=== PATIENT | male | born 1965 | race Caucasian/White ===

== ENCOUNTER 2018-03-16 16:10 | Emergency (ER) | payer BC, MEDICARE ==
[~2018-03-16] VITALS: Ht 195.6 cm; Wt 113.4 kg
[~2018-03-16 16:10] MED LIST: ALBU90OI61 INH; AMOX500 PO; ANTIDEPRESSANT; ASPI81CH PO; ATOR20; ATORVASTATIN CA10 MG PO; AZIT250 PO; Amlodipine Besyl5 MG PO; BP MED; CEPH500 PO; DILT120 PO; ERYT.5TO OS; FLUSAL2505 INH; GUAI600T33 PO; HYDACE10B PO; HYDACE5; HYDACE5 PO; KETO10 PO; LISI20 PO; LOSA50 PO; NAPR500 PO; Norco 5-325 Ta1 EACH PO; OMEP20ER PO; OXYACE5T PO; PRED10 PO; RXHYDACE PO; TRAM50 PO; VENL75 PO; VENL75ER; VENL75ER PO; XARELTO20 MG PO
[2018-03-16 16:50] LABS: BASOPHILS ABSOLUTE AUTO 0.18 K/mm3 (0.00-0.23); BASOPHILS PERCENT AUTO 2 % (0-2); EOSINOPHILS ABSOLUTE AUTO 0.53 K/mm3 (0.00-0.68); EOSINOPHILS PERCENT AUTO 7 % (0-6); Hematocrit 48.8 % (37.0-53.0); Hemoglobin 16.7 g/dL (13.5-17.5); IMMATURE GRAN ABSOLUTE AUTO 0.02 K/mm3 (0.00-0.10); IMMATURE GRAN PERCENT AUTO 0 % (0-1); LYMPHOCYTES ABSOLUTE AUTO 2.16 K/mm3 (0.84-5.20); LYMPHOCYTES PERCENT AUTO 28 % (21-46); MONOCYTES ABSOLUTE AUTO 0.94 K/mm3 (0.16-1.47); MONOCYTES PERCENT AUTO 12 % (4-13); Mean Corpuscular HGB 32.6 pg (26.0-34.0); Mean Corpuscular HGB Conc 34.2 g/dL (31.5-36.5); Mean Corpuscular Volume 95 fL (80-100); Mean Platelet Volume 9.3 fL (9.1-12.4); NEUTROPHILS ABSOLUTE AUTO 3.97 K/mm3 (1.96-9.15); NEUTROPHILS PERCENT AUTO 51 % (41-73); Platelet Count 371 K/mm3 (150-400); RDW Coefficient Variation 12.2 % (11.7-14.2); RDW Standard Deviation 42.5 fL (35.1-46.3); Red Blood Cell Count 5.13 M/mm3 (4.30-5.90)
[2018-03-16 18:14] LABS: Alanine Aminotransfer (ALT/SGP 58 U/L (12-78); Albumin, Blood 4.1 g/dL (3.4-5.0); Albumin/Globulin Ratio 0.9 (0.8-1.8); Alk Phos 108 U/L (50-136); Anion Gap 10 mmol/L (6-16); Aspartate Aminotrans (AST/SGOT 35 U/L (12-37); Bilirubin, Total 0.5 mg/dL (0.1-1.0); Blood Urea Nitrogen 24 mg/dL (8-24); Bun/Creatinine Ratio 26.2 (12.0-20.0); CO2, Blood 21 mmol/L (21-32); Calcium, Blood 9.2 mg/dL (8.5-10.1); Chloride, Blood 106 mmol/L (98-108); Creatinine, Blood 0.92 mg/dL (0.60-1.20); Globulin, Blood 4.5 g/dL (2.2-4.0); Glomerular Filtration Rate >60 (60-); Glucose, Blood 102 mg/dL (70-99); Potassium, Blood 4.1 mmol/L (3.5-5.5); Sodium, Blood 137 mmol/L (136-145); Total Protein, Blood 8.6 g/dL (6.4-8.2); Troponin I <0.015 ng/mL (0.000-0.040)
== END 2018-03-16 20:27 | disposition home or self-care (01) ==
LOC: ER 16:10
PROVIDERS: Emergency Medicine
DX: R07.89 Other chest pain (principal); R00.2 Palpitations; Z88.5 Allergy status to narcotic agent; Z79.899 Other long term (current) drug therapy; Z79.82 Long term (current) use of aspirin; F32.9 Major depressive disorder, single episode, unspecified
CPT/HCPCS: 36415; 71046; 80053; 84484; 85025; 93005; 93010; 99285-25

== ENCOUNTER 2019-03-29 07:34 | Inpatient (IN) | payer BC, MEDICARE ==
[~2019-03-29] VITALS: Ht 193 cm; Wt 114.2 kg
[~2019-03-29 07:34] MED LIST changes: +CHLO25B PO; +Cardizem LA360 MG PO; -DILT120 PO; -FLUSAL2505 INH; +FLUT1DIS5 INH; -LISI20 PO; +OMEPRAZOLE MAGN20 MG PO; +Prinivil10 MG PO
[2019-03-29 08:06] LABS: BASOPHILS ABSOLUTE AUTO 0.08 K/mm3 (0.00-0.23); BASOPHILS PERCENT AUTO 0 % (0-2); EOSINOPHILS ABSOLUTE AUTO 0.17 K/mm3 (0.00-0.68); EOSINOPHILS PERCENT AUTO 1 % (0-6); Hematocrit 41.9 % (37.0-53.0); Hemoglobin 14.9 g/dL (13.5-17.5); IMMATURE GRAN ABSOLUTE AUTO 0.15 K/mm3 (0.00-0.10); IMMATURE GRAN PERCENT AUTO 1 % (0-1); LYMPHOCYTES ABSOLUTE AUTO 1.02 K/mm3 (0.84-5.20); LYMPHOCYTES PERCENT AUTO 5 % (21-46); MONOCYTES ABSOLUTE AUTO 1.19 K/mm3 (0.16-1.47); MONOCYTES PERCENT AUTO 6 % (4-13); Mean Corpuscular HGB 31.6 pg (26.0-34.0); Mean Corpuscular HGB Conc 35.6 g/dL (31.5-36.5); Mean Corpuscular Volume 89 fL (80-100); Mean Platelet Volume 9.1 fL (9.1-12.4); NEUTROPHILS PERCENT AUTO 87 % (41-73); Platelet Count 529 K/mm3 (150-400); RDW Coefficient Variation 11.8 % (11.7-14.2); RDW Standard Deviation 37.9 fL (35.1-46.3); Red Blood Cell Count 4.71 M/mm3 (4.30-5.90); White Blood Cell Count 19.71 K/mm3 (4.00-11.30)
[2019-03-29] MEDS ORDERED: ELIQUIS5 M3 PO (08:22)
[2019-03-29] MEDS ORDERED: METO25 PO (08:24)
[2019-03-29 08:26] LABS: Alanine Aminotransfer (ALT/SGP 30 U/L (12-78); Albumin, Blood 3.5 g/dL (3.4-5.0); Albumin/Globulin Ratio 0.9 (0.8-1.8); Alk Phos 103 U/L (50-136); Anion Gap 10 mmol/L (6-16); Aspartate Aminotrans (AST/SGOT 19 U/L (12-37); Bilirubin, Total 0.6 mg/dL (0.1-1.0); Blood Urea Nitrogen 21 mg/dL (8-24); Bun/Creatinine Ratio 22.6 (12.0-20.0); CO2, Blood 24 mmol/L (21-32); Chloride, Blood 99 mmol/L (98-108); Creatinine, Blood 0.93 mg/dL (0.60-1.20); Globulin, Blood 4.1 g/dL (2.2-4.0); Glomerular Filtration Rate >60 (60-); Glucose, Blood 119 mg/dL (70-99); Potassium, Blood 4.3 mmol/L (3.5-5.5); Sodium, Blood 133 mmol/L (136-145); Total Protein, Blood 7.6 g/dL (6.4-8.2); Troponin I <0.015 ng/mL (0.000-0.040)
--- NOTE | 2019-03-29 15:25 | NUR ---
PT. REFUSES CPAP AT THIS TIME. REFUSAL FORM SIGNED.
[2019-03-29 16:42] LABS: Adenovirus Not Detected (NOT DETECT); Bordetella pertussis Not Detected (NOT DETECT); Chlamydophila pneumoniae Not Detected (NOT DETECT); Coronavirus 229E Not Detected (NOT DETECT); Coronavirus HKU1 Not Detected (NOT DETECT); Coronavirus NL63 Not Detected (NOT DETECT); Coronavirus OC43 Not Detected (NOT DETECT); Human Metapneumovirus Not Detected (NOT DETECT); Human Rhinovirus/Enterovirus Not Detected (NOT DETECT); Influenza A Not Detected (NOT DETECT); Influenza A/2009-H1 Not Detected (NOT DETECT); Influenza A/H1 Not Detected (NOT DETECT); Influenza A/H3 Not Detected (NOT DETECT); Influenza B Not Detected (NOT DETECT); Mycoplasma pneumoniae Not Detected (NOT DETECT); Parainfluenza Virus 1 Not Detected (NOT DETECT); Parainfluenza Virus 2 Not Detected (NOT DETECT); Parainfluenza Virus 3 Not Detected (NOT DETECT); Parainfluenza Virus 4 Not Detected (NOT DETECT); Respiratory Syncytial Virus Not Detected (NOT DETECT)
--- NOTE | 2019-03-29 20:38 | NUR ---
SHIFT SUMMARY PT IS A&O X4, VSS, ON 2 L O2 VIA NC, LR INFUSING @ 125 ML/HR PER EMAR. PT DENIES CP SINCE BEING ADMITTED TO THE ROOM, NAUSEA MEDICATED X1, TYLENOL GIVEN TO COVER TEMP OF 100.0 F, DYSPNEA ON EXERTION. NSR PER [employer]. PT IS INDEPENDENT IN THE ROOM, CALLS PRN FOR HELP, CALL LIGHT IN REACH, REPORT GIVEN TO МАРИЯ DIA.
[2019-03-30 04:08] LABS: BASOPHILS ABSOLUTE AUTO 0.11 K/mm3 (0.00-0.23); BASOPHILS PERCENT AUTO 1 % (0-2); EOSINOPHILS ABSOLUTE AUTO 0.21 K/mm3 (0.00-0.68); EOSINOPHILS PERCENT AUTO 1 % (0-6); Hematocrit 37.1 % (37.0-53.0); Hemoglobin 12.7 g/dL (13.5-17.5); IMMATURE GRAN ABSOLUTE AUTO 0.12 K/mm3 (0.00-0.10); IMMATURE GRAN PERCENT AUTO 1 % (0-1); LYMPHOCYTES ABSOLUTE AUTO 1.75 K/mm3 (0.84-5.20); LYMPHOCYTES PERCENT AUTO 9 % (21-46); MONOCYTES ABSOLUTE AUTO 1.48 K/mm3 (0.16-1.47); MONOCYTES PERCENT AUTO 8 % (4-13); Mean Corpuscular HGB 32.1 pg (26.0-34.0); Mean Corpuscular HGB Conc 34.2 g/dL (31.5-36.5); Mean Platelet Volume 9.3 fL (9.1-12.4); NEUTROPHILS ABSOLUTE AUTO 15.96 K/mm3 (1.96-9.15); NEUTROPHILS PERCENT AUTO 81 % (41-73); Platelet Count 343 K/mm3 (150-400); RDW Coefficient Variation 12.3 % (11.7-14.2); RDW Standard Deviation 42.7 fL (35.1-46.3); Red Blood Cell Count 3.96 M/mm3 (4.30-5.90); White Blood Cell Count 19.63 K/mm3 (4.00-11.30)
[2019-03-30 04:09] LABS: Mean Corpuscular Volume 94 fL (80-100)
[2019-03-30 04:27] LABS: Alanine Aminotransfer (ALT/SGP 20 U/L (12-78); Albumin, Blood 2.9 g/dL (3.4-5.0); Albumin/Globulin Ratio 0.8 (0.8-1.8); Alk Phos 81 U/L (50-136); Anion Gap 7 mmol/L (6-16); Aspartate Aminotrans (AST/SGOT 7 U/L (12-37); Blood Urea Nitrogen 13 mg/dL (8-24); Bun/Creatinine Ratio 17.4 (12.0-20.0); CO2, Blood 26 mmol/L (21-32); Calcium, Blood 8.6 mg/dL (8.5-10.1); Chloride, Blood 105 mmol/L (98-108); Creatinine, Blood 0.75 mg/dL (0.60-1.20); Globulin, Blood 3.7 g/dL (2.2-4.0); Glomerular Filtration Rate >60 (60-); Glucose, Blood 102 mg/dL (70-99); Magnesium, Blood 1.7 mg/dL (1.6-2.4); Potassium, Blood 3.9 mmol/L (3.5-5.5); Sodium, Blood 138 mmol/L (136-145); Total Protein, Blood 6.6 g/dL (6.4-8.2)
--- NOTE | 2019-03-30 06:00 | NUR ---
ASSUMED CARE AT 1900. AALOWED TO SLEEP AND THEN AROUSED . REPORTS COMPLETE EXHAUSTION AND ACHES. TYLENOL GIVEN AND AFEBRILE PRIOR. NOT DIAPHORETIC. ST INITIALLY THEN SR MOST OF THE SHIFT. TYLENOL GIVEN TWICE FOR SOME SLIGHT RELIEF FROM SO MUCH ACHINESS. REPORTS MUCH IMPROVEMENT FROM CP ON INSPIRATION THAN WHEN FIRST ADMITTED. . DENIES DIZZINESS WHEN OOB TO BR. ENC MUCH FLUIDS. AND NO GI UPSET
--- NOTE | 2019-03-30 17:21 | NUR ---
SHIFT SUMMARY PT A&Ox4. CALM AND COOPERATIVE WITH CARE. PT RESTING IN BED DURING SHIFT, IND IN ROOM; ENCOURAGED PT TO SIT IN CHAIR AND WALK. PT REPORTS RIB/COUGHING PAIN, 4-5/10 WITH INSPIRATION AND COUHG, MEDICATED WITH TYLENOL. PT SOB WITH EXERTION, TITRATED PT TO 1L O2 VIA NC; ATTEMPTED TO TITRATED PT TO RA, SPO2 86-88 WITH AMBULATION ON RA; SPO2 >94% ON 1L O2 VIA NC. PT DENIES NAUSEA; GOOD APPETITE; ADVANCED TO REGULAR DIET THIS AFTERNOON. CLARIFIED NOTE/ORDERS FOR TAMIFLU WITH DR OH; NEW ORDERS TO DISCONTINUE. VSS. NO OTHER ACUTE CHANGES NOTED DURING SHIFT. WILL CONTINUE TO MONITOR UNITL REPORT GIVEN TO ONCOMING RN.
--- NOTE | 2019-03-30 19:29 | NUR ---
PT TRANSFERING TO ROOM 335, TELEPHONE REPORT GIVEN TO [facility]. PT TRANSFERING SHORTLY.
--- NOTE | 2019-03-30 19:51 | NUR ---
HANDOFF/TRANSFER NOTE HANDOFF REPORT RECEIVED FROM PCU NURSE SOFIA. PT TRANSFERED TO FLOOR VIA WHEELCHAIR. IV FLUIDS INFUSING. O2 ADMINISTERED ORDERED. PT ORIENTED TO UNIT. CALL BUTTON WITHIN REACH
--- NOTE | 2019-03-31 05:08 | NUR ---
SHIFT SUMMARY TRANSFER FROM PCU LAST NIGHT. FULL CODE ADMIT FOR SEPSIS/PNEUMONIA. 1 LPM O2, IV FLUIDS INFUSING ORDERED. A&O X4, INDEPENDENT IN ROOM, REGULAR DIET. LIVES W/ AT HOME. DESATURATES O2 SAT WHEN AMBULATING. HX: AFIB, DEPRESSION, APNEA, COPD, HTN
[2019-03-31 05:51] LABS: BASOPHILS PERCENT AUTO 1 % (0-2); EOSINOPHILS ABSOLUTE AUTO 0.31 K/mm3 (0.00-0.68); EOSINOPHILS PERCENT AUTO 3 % (0-6); Hematocrit 38.7 % (37.0-53.0); Hemoglobin 12.9 g/dL (13.5-17.5); IMMATURE GRAN ABSOLUTE AUTO 0.07 K/mm3 (0.00-0.10); IMMATURE GRAN PERCENT AUTO 1 % (0-1); LYMPHOCYTES ABSOLUTE AUTO 1.92 K/mm3 (0.84-5.20); LYMPHOCYTES PERCENT AUTO 15 % (21-46); MONOCYTES ABSOLUTE AUTO 0.94 K/mm3 (0.16-1.47); MONOCYTES PERCENT AUTO 8 % (4-13); Mean Corpuscular HGB 31.4 pg (26.0-34.0); Mean Corpuscular HGB Conc 33.3 g/dL (31.5-36.5); Mean Corpuscular Volume 94 fL (80-100); Mean Platelet Volume 9.6 fL (9.1-12.4); NEUTROPHILS ABSOLUTE AUTO 9.26 K/mm3 (1.96-9.15); NEUTROPHILS PERCENT AUTO 73 % (41-73); Platelet Count 384 K/mm3 (150-400); RDW Coefficient Variation 12.2 % (11.7-14.2); RDW Standard Deviation 42.5 fL (35.1-46.3); Red Blood Cell Count 4.11 M/mm3 (4.30-5.90)
--- NOTE | 2019-03-31 11:24 | NUR ---
PT TITRATED TO RA AND MAINTAINING SPO2>94%, RESPS E/U. PT AMBULATED IN ROOM AND HAS SAT AT EOB EATING W/O ANY DESATS.
--- NOTE | 2019-03-31 12:42 | NUR ---
PT SHOWERED AND IVF ARE NOW RESTARTED. SPO2 WAS 93% ON RA FOLLOWING SHOWER AND AMBULATION IN HALLWAY.
--- NOTE | 2019-03-31 16:21 | NUR ---
PT REPORTS A FLAIR UP OF HIS GOUT IN HIS LEFT FOOT. PT REPORTS HE HAS HAD IT BEFORE AND IT FEELS JUST LIKE IT HAS BEFORE. NOTED TO HAVE SOME REDNESS IN THE INNER PORTION OF LEFT FOOT. PRN TYLENOL GIVEN AND DR OH NOTIFIED, REPORTS SHE WILL ORDER COLCHICINE.
--- NOTE | 2019-03-31 18:20 | NUR ---
SHIFT SUMMARY- PT A/OX4, INDEP UP IN ROOM AND HALLS. PT MEDICATED X1 WITH TYLENOL FOR GOUT TO LEFT FOOT, PT STARTED ON COLCHICINE. LS DIMINISHED, PT HAS BEEN DOING WELL ON RA. PT ABLE TO SHOWER AND AMBULATE IN HALLS WITH MINIMAL SOB. PT POSSIBLE DISCHARGE HOME TOMORROW.
[2019-04-01 05:21] LABS: BASOPHILS ABSOLUTE AUTO 0.09 K/mm3 (0.00-0.23); BASOPHILS PERCENT AUTO 1 % (0-2); EOSINOPHILS ABSOLUTE AUTO 0.34 K/mm3 (0.00-0.68); EOSINOPHILS PERCENT AUTO 3 % (0-6); Hemoglobin 12.8 g/dL (13.5-17.5); IMMATURE GRAN ABSOLUTE AUTO 0.03 K/mm3 (0.00-0.10); IMMATURE GRAN PERCENT AUTO 0 % (0-1); LYMPHOCYTES ABSOLUTE AUTO 1.73 K/mm3 (0.84-5.20); LYMPHOCYTES PERCENT AUTO 17 % (21-46); MONOCYTES ABSOLUTE AUTO 0.87 K/mm3 (0.16-1.47); MONOCYTES PERCENT AUTO 9 % (4-13); Mean Corpuscular HGB 31.6 pg (26.0-34.0); Mean Corpuscular HGB Conc 33.7 g/dL (31.5-36.5); Mean Corpuscular Volume 94 fL (80-100); Mean Platelet Volume 9.3 fL (9.1-12.4); NEUTROPHILS PERCENT AUTO 70 % (41-73); Platelet Count 401 K/mm3 (150-400); RDW Standard Deviation 42.2 fL (35.1-46.3); Red Blood Cell Count 4.05 M/mm3 (4.30-5.90); White Blood Cell Count 10.26 K/mm3 (4.00-11.30)
--- NOTE | 2019-04-01 05:34 | NUR ---
SHIFT SUMMARY PT REPORTS "FEELING MUCH BETTER" THIS EVENING. REMAINED ON RA THROUGHOUT THE NIGHT. LUNG SOUNDS DIMINISHED. PRN MELATONIN GIVEN PER PT REQUEST AND PT APPEARED TO SLEEP WELL THROUGH MUCH OF THE NIGHT FOLLOWING. PT DID WAKE ONE TIME AND COMPLAINED OF A HEADACHE, MEDICATED WITH TYLENOL BY TRANSMISSION OPERATOR LISA. OTHERWISE NO ACUTE CHANGES. VITAL SIGNS STABLE. AFEBRILE.
[2019-04-01 05:47] LABS: Anion Gap 5 mmol/L (6-16); Blood Urea Nitrogen 9 mg/dL (8-24); Bun/Creatinine Ratio 11.6 (12.0-20.0); CO2, Blood 28 mmol/L (21-32); Calcium, Blood 8.8 mg/dL (8.5-10.1); Chloride, Blood 106 mmol/L (98-108); Creatinine, Blood 0.78 mg/dL (0.60-1.20); Glomerular Filtration Rate >60 (60-); Glucose, Blood 105 mg/dL (70-99); Potassium, Blood 3.7 mmol/L (3.5-5.5); Sodium, Blood 139 mmol/L (136-145)
[2019-04-01] MEDS ORDERED: BENZ100A PO (10:38)
[2019-04-01] MEDS ORDERED: ACET325 PO (10:38)
[2019-04-01] MEDS ORDERED: GUAI600T33 PO (10:39)
[2019-04-01] MEDS ORDERED: COLCHICINE0.6 MG PO (10:39)
[2019-04-01] MEDS ORDERED: NAPR500 PO (10:40)
[2019-04-01] MEDS ORDERED: Vsl#3 Capsule1 EACH PO (10:40)
[2019-04-01] MEDS ORDERED: Augmentin 875-1 EACH PO (10:40)
--- NOTE | 2019-04-01 12:05 | NUR ---
DISCHARGE INSTRUCTIONS REVIEWED WITH PT. IV DC'D INTACT. RX FAXED TO [facility]. PT DISCHARGED HOME WITH SPOUSE AT 1210.
== END 2019-04-01 12:11 | disposition home or self-care (01) | DRG 871 ==
LOC: ER 07:34 → PCU 10:08 → MEDS 03-30 19:40
PROVIDERS: Emergency Medicine; Nurse Practitioner Acute Care; ADMIT Internal Medicine
DX: A41.9 Sepsis, unspecified organism (principal); J96.01 Acute respiratory failure with hypoxia; J18.9 Pneumonia, unspecified organism; J44.0 Chronic obstructive pulmonary disease with (acute) lower respiratory infection; R65.20 Severe sepsis without septic shock; I10 Essential (primary) hypertension; K21.9 Gastro-esophageal reflux disease without esophagitis; G47.33 Obstructive sleep apnea (adult) (pediatric); I48.0 Paroxysmal atrial fibrillation; M10.9 Gout, unspecified; Z79.51 Long term (current) use of inhaled steroids; Z79.899 Other long term (current) drug therapy; Z87.891 Personal history of nicotine dependence
CPT/HCPCS: 0099U; 36415; 71045; 80048; 80053; 83605; 83735; 83880; 84145; 84484; 85025; 87040; 87070; 87205; 87449; 93005; 93010; 94640; 94760; 96361; 96365; 96366; 96367; 96375; 96376; 99285-25; A9270; J0456; J0696; J2405; J3475; J7030; J7050

== ENCOUNTER → 2021-07-24 | Outpatient (CLI) | payer BC, MEDICARE ==
[~2021-07-24] MED LIST changes: +ACET325 PO; +Augmentin 875-1 EACH PO; +BENZ100A PO; +COLCHICINE0.6 MG PO; +ELIQUIS5 M3 PO; +METO25 PO; +Vsl#3 Capsule1 EACH PO
[2021-07-24 15:18] LABS: BASOPHILS ABSOLUTE AUTO 0.16 K/mm3 (0.00-0.23); BASOPHILS PERCENT AUTO 2 % (0-2); EOSINOPHILS ABSOLUTE AUTO 0.51 K/mm3 (0.00-0.68); EOSINOPHILS PERCENT AUTO 7 % (0-6); Hemoglobin 15.5 g/dL (13.5-17.5); IMMATURE GRAN ABSOLUTE AUTO 0.02 K/mm3 (0.00-0.10); IMMATURE GRAN PERCENT AUTO 0 % (0-1); LYMPHOCYTES ABSOLUTE AUTO 1.57 K/mm3 (0.84-5.20); LYMPHOCYTES PERCENT AUTO 21 % (21-46); MONOCYTES ABSOLUTE AUTO 0.81 K/mm3 (0.16-1.47); MONOCYTES PERCENT AUTO 11 % (4-13); Mean Corpuscular HGB 30.2 pg (26.0-34.0); Mean Corpuscular HGB Conc 33.7 g/dL (31.5-36.5); Mean Corpuscular Volume 90 fL (80-100); Mean Platelet Volume 9.6 fL (9.1-12.4); NEUTROPHILS ABSOLUTE AUTO 4.52 K/mm3 (1.96-9.15); NEUTROPHILS PERCENT AUTO 60 % (41-73); Platelet Count 471 K/mm3 (150-400); RDW Coefficient Variation 13.1 % (11.7-14.2); Red Blood Cell Count 5.14 M/mm3 (4.30-5.90); White Blood Cell Count 7.59 K/mm3 (4.00-11.30)
[2021-07-24 15:30] LABS: Albumin, Blood 3.8 g/dL (3.4-5.0); Albumin/Globulin Ratio 0.9 (0.8-1.8); Bilirubin, Total 0.5 mg/dL (0.1-1.0); Bun/Creatinine Ratio 12.8 (12.0-20.0); Calcium, Blood 9.5 mg/dL (8.5-10.1); Creatinine, Blood 0.78 mg/dL (0.60-1.20); Globulin, Blood 4.2 g/dL (2.2-4.0); Magnesium, Blood 2.4 mg/dL (1.6-2.4); Potassium, Blood 4.1 mmol/L (3.5-5.5)
== END | disposition home or self-care (01) ==
LOC: LAB SHORT 12:47 → LAB 12:47
PROVIDERS: Nurse Practitioner Family
DX: R07.9 Chest pain, unspecified (principal); R10.9 Unspecified abdominal pain
CPT/HCPCS: 80053; 83690; 83735; 85025

== ENCOUNTER 2021-12-01 08:36 | Emergency (ER) | payer BC, MEDICARE ==
[~2021-12-01] VITALS: Ht 193 cm; Wt 90.7 kg
[2021-12-01 10:41] LABS: BASOPHILS ABSOLUTE AUTO 0.11 K/mm3 (0.00-0.23); BASOPHILS PERCENT AUTO 1 % (0-2); EOSINOPHILS ABSOLUTE AUTO 0.19 K/mm3 (0.00-0.68); EOSINOPHILS PERCENT AUTO 2 % (0-6); Hemoglobin 14.1 g/dL (13.5-17.5); IMMATURE GRAN ABSOLUTE AUTO 0.03 K/mm3 (0.00-0.10); IMMATURE GRAN PERCENT AUTO 0 % (0-1); LYMPHOCYTES ABSOLUTE AUTO 1.21 K/mm3 (0.84-5.20); LYMPHOCYTES PERCENT AUTO 13 % (21-46); MONOCYTES ABSOLUTE AUTO 1.55 K/mm3 (0.16-1.47); MONOCYTES PERCENT AUTO 17 % (4-13); Mean Corpuscular HGB 28.1 pg (26.0-34.0); Mean Corpuscular HGB Conc 32.8 g/dL (31.5-36.5); Mean Corpuscular Volume 86 fL (80-100); Mean Platelet Volume 8.9 fL (9.1-12.4); NEUTROPHILS ABSOLUTE AUTO 6.11 K/mm3 (1.96-9.15); NEUTROPHILS PERCENT AUTO 66 % (41-73); Platelet Count 453 K/mm3 (150-400); RDW Coefficient Variation 15.2 % (11.7-14.2); RDW Standard Deviation 47.5 fL (35.1-46.3); Red Blood Cell Count 5.02 M/mm3 (4.30-5.90)
[2021-12-01 10:57] LABS: Albumin, Blood 2.8 g/dL (3.4-5.0); Albumin/Globulin Ratio 0.6 (0.8-1.8); Bilirubin, Direct 0.2 mg/dL (0.0-0.3); Bilirubin, Indirect 0.2 mg/dL (0.1-0.7); Bilirubin, Total 0.4 mg/dL (0.1-1.0); Bun/Creatinine Ratio 18.5 (12.0-20.0); Calcium, Blood 9.2 mg/dL (8.5-10.1); Creatinine, Blood 0.97 mg/dL (0.60-1.20); Globulin, Blood 4.5 g/dL (2.2-4.0); Magnesium, Blood 1.6 mg/dL (1.6-2.4); Potassium, Blood 4.1 mmol/L (3.5-5.5); Total Protein, Blood 7.3 g/dL (6.4-8.2)
[2021-12-01 14:05] LABS: Triglycerides 92 mg/dL (30-160)
[2021-12-01] MEDS ORDERED: ONDA4ODT MM (16:11)
[2021-12-01] MEDS ORDERED: PROMETHAZINE12.5 M1 PO (16:11)
[2021-12-01] MEDS ORDERED: HYDMOR2 PO (16:11)
[2021-12-01] MEDS ORDERED: PROM12.5S PR (16:11)
== END 2021-12-01 16:25 | disposition home or self-care (01) ==
LOC: ER 08:36
PROVIDERS: Physician Assistant; Student in an Organized Health Care Education/Training Program
DX: K85.90 Acute pancreatitis without necrosis or infection, unspecified (principal); R63.4 Abnormal weight loss; R59.0 Localized enlarged lymph nodes; I10 Essential (primary) hypertension; I48.0 Paroxysmal atrial fibrillation; J44.9 Chronic obstructive pulmonary disease, unspecified; Z72.89 Other problems related to lifestyle; Z87.891 Personal history of nicotine dependence; Z88.5 Allergy status to narcotic agent; Z88.6 Allergy status to analgesic agent; Z79.899 Other long term (current) drug therapy; Z79.01 Long term (current) use of anticoagulants
CPT/HCPCS: 36415; 74177; 76705; 80048; 80076; 83690; 83735; 84478; 85025; A9270; J1170; J2405; J7030; Q9967

== ENCOUNTER 2021-12-09 04:59 | Inpatient (IN) | payer BC, MEDICARE ==
[~2021-12-09] VITALS: Ht 193 cm; Wt 93.5 kg
[~2021-12-09 04:59] MED LIST changes: +HYDMOR2 PO; +ONDA4ODT MM; +PROM12.5S PR; +PROMETHAZINE12.5 M1 PO
[2021-12-09 05:47] LABS: BASOPHILS PERCENT AUTO 1 % (0-2); EOSINOPHILS ABSOLUTE AUTO 0.25 K/mm3 (0.00-0.68); EOSINOPHILS PERCENT AUTO 4 % (0-6); Hematocrit 39.8 % (37.0-53.0); Hemoglobin 13.2 g/dL (13.5-17.5); IMMATURE GRAN ABSOLUTE AUTO 0.02 K/mm3 (0.00-0.10); IMMATURE GRAN PERCENT AUTO 0 % (0-1); LYMPHOCYTES ABSOLUTE AUTO 1.17 K/mm3 (0.84-5.20); LYMPHOCYTES PERCENT AUTO 17 % (21-46); MONOCYTES ABSOLUTE AUTO 1.01 K/mm3 (0.16-1.47); MONOCYTES PERCENT AUTO 15 % (4-13); Mean Corpuscular HGB 27.4 pg (26.0-34.0); Mean Corpuscular HGB Conc 33.2 g/dL (31.5-36.5); Mean Corpuscular Volume 83 fL (80-100); Mean Platelet Volume 8.7 fL (9.1-12.4); NEUTROPHILS PERCENT AUTO 63 % (41-73); Platelet Count 593 K/mm3 (150-400); RDW Coefficient Variation 14.3 % (11.7-14.2); RDW Standard Deviation 43.4 fL (35.1-46.3); Red Blood Cell Count 4.81 M/mm3 (4.30-5.90); White Blood Cell Count 6.95 K/mm3 (4.00-11.30)
[2021-12-09 06:33] LABS: Albumin, Blood 2.4 g/dL (3.4-5.0); Albumin/Globulin Ratio 0.5 (0.8-1.8); Bilirubin, Total 0.5 mg/dL (0.1-1.0); Bun/Creatinine Ratio 18.2 (12.0-20.0); Calcium, Blood 8.8 mg/dL (8.5-10.1); Creatinine, Blood 1.59 mg/dL (0.60-1.20); Globulin, Blood 4.7 g/dL (2.2-4.0); Potassium, Blood 3.4 mmol/L (3.5-5.5); Total Protein, Blood 7.1 g/dL (6.4-8.2)
[2021-12-09 08:44] LABS: Percent Saturation 13.4 % (20.0-50.0)
[2021-12-09] MEDS ORDERED: OMEP20ER PO (09:06)
[2021-12-09] MEDS ORDERED: Dilaudid 2 mg Ta2 MG (09:06)
[2021-12-09] MEDS ORDERED: ATORVASTATIN CA20 MG PO (09:07)
[2021-12-09] MEDS ORDERED: METOPROLOL TART25 MG PO (09:07)
[2021-12-09] MEDS ORDERED: FLUTICASONE-SA1 EAC9 IH (09:08)
[2021-12-09] MEDS ORDERED: PROAIR RESPICL90 MCG IH (09:08)
[2021-12-09] MEDS ORDERED: DILTIAZEM 24HR360 M2 PO (09:09)
[2021-12-09] MEDS ORDERED: [UNRECOGNIZED DRUG - OTHER] PO (09:09)
[2021-12-09] MEDS ORDERED: Prinivil10 MG PO (09:09)
[2021-12-09] MEDS ORDERED: Hair, Skin & N1 EACH PO (09:10)
--- NOTE | 2021-12-09 16:23 | NUR ---
PT ADMITTED TO ROOM 325 AT 1540. PT A/O X 4, IND PLEASANT AND COOPERATIVE. C/O NAUSEA AND 6/10 ABD PAIN REPORTING PAIN LEVEL IS TOLERABLE AT THIS TIME. PT ORIENTED TO RM/CALL LIGHT. ICE WATER PROVIDED. TELE PLACED AND NSR AT 81. PT DENIES ANY FURTHER NEEDS AT THIS TIME.
[2021-12-10 05:22] LABS: BASOPHILS PERCENT AUTO 2 % (0-2); EOSINOPHILS ABSOLUTE AUTO 0.28 K/mm3 (0.00-0.68); EOSINOPHILS PERCENT AUTO 5 % (0-6); Hematocrit 35.1 % (37.0-53.0); Hemoglobin 11.5 g/dL (13.5-17.5); IMMATURE GRAN ABSOLUTE AUTO 0.02 K/mm3 (0.00-0.10); IMMATURE GRAN PERCENT AUTO 0 % (0-1); LYMPHOCYTES ABSOLUTE AUTO 0.99 K/mm3 (0.84-5.20); LYMPHOCYTES PERCENT AUTO 18 % (21-46); MONOCYTES ABSOLUTE AUTO 0.84 K/mm3 (0.16-1.47); MONOCYTES PERCENT AUTO 15 % (4-13); Mean Corpuscular HGB 27.4 pg (26.0-34.0); Mean Corpuscular HGB Conc 32.8 g/dL (31.5-36.5); Mean Corpuscular Volume 84 fL (80-100); NEUTROPHILS PERCENT AUTO 60 % (41-73); Platelet Count 498 K/mm3 (150-400); RDW Coefficient Variation 14.2 % (11.7-14.2); RDW Standard Deviation 43.8 fL (35.1-46.3); Red Blood Cell Count 4.19 M/mm3 (4.30-5.90); White Blood Cell Count 5.53 K/mm3 (4.00-11.30)
[2021-12-10 05:56] LABS: Albumin/Globulin Ratio 0.5 (0.8-1.8); Bilirubin, Total 0.4 mg/dL (0.1-1.0); Bun/Creatinine Ratio 19.3 (12.0-20.0); Creatinine, Blood 0.67 mg/dL (0.60-1.20); Potassium, Blood 3.6 mmol/L (3.5-5.5)
--- NOTE | 2021-12-10 06:17 | NUR ---
SHIFT SUMMARY PATIENT ALERT AND ORIENTED, INDEPENDENT IN HIS ROOM. MEDICATED PER EMAR ONCE FOR NAUSEA AND PAIN THIS MORNING. NO ACUTE ISSUES NOTED OVERNIGHT. CALL LIGHT WITHIN REACH. REPORT GIVEN TO ONCOMING RN.
[2021-12-10 17:49] LABS: Adenovirus F 40/41 Not Detected (NOT DETECT); Astrovirus Not Detected (NOT DETECT); Campylobacter Sp Not Detected (NOT DETECT); Cryptosporidium Not Detected (NOT DETECT); Cyclospora Cayetanensis Not Detected (NOT DETECT); E. Coli O157 Not Detected (NOT DETECT); Entamoeba Histolytica Not Detected (NOT DETECT); Enteroaggregative E. coli-EAEC Not Detected (NOT DETECT); Enteropathogenic E. coli-EPEC Not Detected (NOT DETECT); Enterotoxigenic E. coli-ETEC Not Detected (NOT DETECT); Giardia Lamblia Not Detected (NOT DETECT); Norovirus GI/GII Not Detected (NOT DETECT); Plesiomonas Shigelloides Not Detected (NOT DETECT); Rotavirus A Not Detected (NOT DETECT); Salmonella Sp Not Detected (NOT DETECT); Sapovirus Not Detected (NOT DETECT); Shiga Toxin-prod E. coli-STEC Not Detected (NOT DETECT); Shigella/Enteroin E. coli-EIEC Not Detected (NOT DETECT); Vibrio Cholerae Not Detected (NOT DETECT); Vibrio Sp Not Detected (NOT DETECT); Yersinia Enterocolitica Not Detected (NOT DETECT)
--- NOTE | 2021-12-10 19:45 | NUR ---
SHIFT SUMMARY: PT A/O X 4 IND IN ROOM PLEASANT AND COOPERATIVE WITH CARE. PT ON FULL LIQUID DIET AT THIS TIME, HE DID HAVE INCREASED PAIN AFTER EATING LUNCH. HE DID NOT FEEL WELL ENOUGH TO ATTEMPT TO EAT DINNER. MORPHINE AND ZOFRAN GIVEN FOR HIS PAIN/NAUSEA. PT ENCOURAGED TO DRINK AN ENSURE WHEN HE FELT ABLE TO. NS AT 125 CONTINUE TO RUN. PT REPORTS HAVING DIARRHEA EVERY 15 TO 30 MINUTES SINCE INITIAL SAMPLE RECEIVED.
--- NOTE | 2021-12-11 02:56 | NUR ---
SHIFT SUMMARY 55 YR M ADMITTED ON 12/09/21 FOR PANCREATITIS. FULL CODE. NO ACUTE CHANGES THIS SHIFT. PT HAS HAD NO C/O N/V OR PAIN THIS SHIFT. HE ATE 2 JELLOS AND STATED THAT HE WAS ACTUALLY HUNGRY FOR THE FIRST TIME IN WEEKS. HE IS CONCERNED ABOUT LOSING MORE WEIGHT HE HAS ALREADY LOST A SIGNIFICANT AMOUNT IN THE PAST FEW MONTHS. HE IS SET TO HAVE A COLONOSCOPY IN THE NEXT FEW DAYS AND HE IS ANXIOUS TO GET IT OVER WITH.
[2021-12-11 05:49] LABS: Hematocrit 34.2 % (37.0-53.0); Hemoglobin 11.5 g/dL (13.5-17.5); Mean Corpuscular HGB 28.2 pg (26.0-34.0); Mean Corpuscular HGB Conc 33.6 g/dL (31.5-36.5); Mean Corpuscular Volume 84 fL (80-100); Platelet Count 573 K/mm3 (150-400); RDW Coefficient Variation 14.1 % (11.7-14.2); RDW Standard Deviation 43.7 fL (35.1-46.3); Red Blood Cell Count 4.08 M/mm3 (4.30-5.90); White Blood Cell Count 6.33 K/mm3 (4.00-11.30)
[2021-12-11 06:01] LABS: Albumin, Blood 2.1 g/dL (3.4-5.0); Albumin/Globulin Ratio 0.5 (0.8-1.8); Bilirubin, Total 0.4 mg/dL (0.1-1.0); Bun/Creatinine Ratio 9.2 (12.0-20.0); Calcium, Blood 8.3 mg/dL (8.5-10.1); Creatinine, Blood 0.65 mg/dL (0.60-1.20); Globulin, Blood 4.1 g/dL (2.2-4.0); Potassium, Blood 3.4 mmol/L (3.5-5.5); Total Protein, Blood 6.2 g/dL (6.4-8.2)
--- NOTE | 2021-12-11 18:15 | NUR ---
SHIFT SUMMARY: PT A/O X 4 IND IN ROOM. PLEASANT AND COOPERATIVE. PT CONTINUES TO HAVE DIARRHEA. HIS ABD PAIN IS MANAGED AT THIS TIME. HE HAD ONE DOSE OF MORPHINE TODAY. PT HAS BEEN ABLE TO AMBULATE HALLS. DR. RAMOS ROUNDED TODAY AND PT REPORTS HE WAS TOLD BY DR. RAMOS BOWEL PREP TO START IN THE MORNING AND EGD AND COLONOSCOPY TO BE DONE TOMORROW AFTERNOON. ALLAN HELD TODAY.
--- NOTE | 2021-12-12 04:22 | NUR ---
SHIFT SUMMARY 55 YR M ADMITTED ON 12/09/21 FOR PANCREATITIS. FULL CODE. NO ACUTE CHANGES THIS SHIFT. PT IS CURRENTLY ON A CLEAR LIQUID DIET AND WILL START BOWEL PREP TODAY IN ANTICIPATION OF A COLONOSCOPY AND EGD. PT IS ANXIOUS TO HAVE THESE TESTS DONE IN HOPES OF GETTING SOME ANSWERS. NO C/O OF N/V, OR DIARRHEA THIS SHIFT.
[2021-12-12 07:08] LABS: Influenza A, PCR NEGATIVE (NEGATIVE); Influenza B, PCR NEGATIVE (NEGATIVE); Resp Syncytial Virus, PCR NEGATIVE (NEGATIVE); SARS-Cov-2 (COVID-19) PCR, MMC NEGATIVE (NEGATIVE)
[2021-12-12 07:59] LABS: Hematocrit 36.6 % (37.0-53.0); Hemoglobin 12.2 g/dL (13.5-17.5); Mean Corpuscular HGB 27.6 pg (26.0-34.0); Mean Corpuscular HGB Conc 33.3 g/dL (31.5-36.5); Mean Corpuscular Volume 83 fL (80-100); Mean Platelet Volume 8.5 fL (9.1-12.4); Platelet Count 568 K/mm3 (150-400); RDW Coefficient Variation 14.1 % (11.7-14.2); RDW Standard Deviation 42.5 fL (35.1-46.3); Red Blood Cell Count 4.42 M/mm3 (4.30-5.90); White Blood Cell Count 5.59 K/mm3 (4.00-11.30)
[2021-12-12 08:22] LABS: Albumin, Blood 2.1 g/dL (3.4-5.0); Albumin/Globulin Ratio 0.5 (0.8-1.8); Bilirubin, Total 0.3 mg/dL (0.1-1.0); Bun/Creatinine Ratio 4.3 (12.0-20.0); Calcium, Blood 8.5 mg/dL (8.5-10.1); Creatinine, Blood 0.7 mg/dL (0.60-1.20); Globulin, Blood 4.1 g/dL (2.2-4.0); Potassium, Blood 3.5 mmol/L (3.5-5.5); Total Protein, Blood 6.2 g/dL (6.4-8.2)
--- NOTE | 2021-12-12 19:36 | NUR ---
SHIFT SUMMARY: PT A/O X 4 IND IN ROOM. PLEASANT AND COOPERATIVE WITH CARES. PT PAIN HAS BEEN TOLERABLE THROUGHOUT THE DAY AND DID NOT NEED PAIN OR NAUSEA MEDICATIONS. PT CURRENTLY AT COLONOSCOPY/EGD PROCEDURE.
--- NOTE | 2021-12-12 19:54 | NUR ---
12/12/211953 Valerie Yang HISTORY, CHART, MEDICATIONS AND ALLERGIES REVIEWED BEFORE START OF PROCEDURE. PATIENT CONFIRMS NPO STATUS AND AGREES WITH SCHEDULED PROCEDURE. 3-LEAD EKG REVIEWED WITH PHYSICIAN PRIOR TO START OF PROCEDURE. MONITOR INTACT WITH CONTINUOUS PULSE OXIMETRY,CAPNOGRAPHY, 3-LEAD EKG, INTERMITTENT BP. SUPPLEMENTAL O2 TO BE TITRATED THROUGHOUT PROCEDURE TO MAINTAIN O2 SATURATION ABOVE 90%. PATIENT DETERMINED TO BE ASA APPROPRIATE FOR PROPOFOL SEDATION PRIOR TO START OF PROCEDURE BY DR. RAMOS. MALLAMPATI CLASS 1 AIRWAY: COMPLETE VISULATIZATION OF THE SOFT PALATE. STOP BANG SCORE. 5.
--- NOTE | 2021-12-12 21:24 | NUR ---
2121- DR RAMOS AT BEDSIDE REVIEWING RESULTS OF EGD AND COLONOSCOPY WITH PATIENT AND PATIENT'S .
--- NOTE | 2021-12-12 21:47 | NUR ---
PT ARRIVED TO MEDICAL FLOOR FROM DAY SURGERY AT 2140 ACCOMPANIED BY . VSS OBTAINED. ADVANCE DIET TOLERATED. GIVEN ROAST BEEF SANDWICH AND THUAN MIST. A&Ox4. INDEPENDENT WITHIN ROOM.
--- NOTE | 2021-12-13 04:22 | NUR ---
[employer] SALES MANAGER SUMMARY: A&Ox4. PLEASANT AND COOPERATIVE WITH CARE. RETURNED FROM PACU @ 2140. ORDERS TO ADVANCE DIET TOLERATED. ATE WHOLE ROAST BEEF SANDWICH PRIOR TO BED. VSS STABLE. AMBULATING INDEPENDENTLY WIHIN ROOM. ORDERS FOR TWO STOOL SAMPLES INCLUDING GI PANEL. CONTACT PRECAUTIONS UNTIL ORDERS CLARIFIED WITH PROVIDER. NO C/O PAIN TODAY. WILL REPORT TO ONCOMING RN.
[2021-12-13 05:55] LABS: Hematocrit 40.8 % (37.0-53.0); Hemoglobin 13.7 g/dL (13.5-17.5); Mean Corpuscular HGB Conc 33.6 g/dL (31.5-36.5); Mean Corpuscular Volume 83 fL (80-100); Mean Platelet Volume 8.4 fL (9.1-12.4); Platelet Count 649 K/mm3 (150-400); RDW Coefficient Variation 14.2 % (11.7-14.2); RDW Standard Deviation 43.4 fL (35.1-46.3); White Blood Cell Count 9.74 K/mm3 (4.00-11.30)
--- NOTE | 2021-12-13 05:59 | NUR ---
DURING AM MED ADMINISTRATION, PT NOTED TO BE SHIVERING AND C/O BODY ACHES. TEMPORAL TEMP TAKEN (PT HAD JUST DRANK ICE WATER, SO ORAL TEMPERATURE WAS NOT AN OPTION) AND NOTED TO BE RUNNING 102.9. NO APAP ORDERS IN CHART. VM FOR DR GAMING AT 0595.
--- NOTE | 2021-12-13 06:10 | NUR ---
CALL BACK FROM DR GAMING AT 0603: ORDERS FOR APAP 650MG Q6H PRN AND BLOOD CULTURES, IF NOT ALREADY ORDERED. BLOOD CULTURES NOT DONE AND SO WERE ORDERED.
[2021-12-13 06:49] LABS: Albumin, Blood 2.4 g/dL (3.4-5.0); Albumin/Globulin Ratio 0.5 (0.8-1.8); Bilirubin, Total 0.4 mg/dL (0.1-1.0); Bun/Creatinine Ratio 4.7 (12.0-20.0); C-Reactive Protein, High Sens. 38.2 mg/L (0.000-3.000); Calcium, Blood 8.6 mg/dL (8.5-10.1); Creatinine, Blood 0.85 mg/dL (0.60-1.20); Globulin, Blood 4.5 g/dL (2.2-4.0); Potassium, Blood 3.6 mmol/L (3.5-5.5); Total Protein, Blood 6.9 g/dL (6.4-8.2)
[2021-12-13 07:41] LABS: Vitamin D, 25-Hydroxy 23 ng/mL (32-80)
[2021-12-13 07:44] LABS: Rubella Antibody, IgG <10.0 IU/mL (15-)
[2021-12-13 15:17] LABS: Adenovirus F 40/41 Not Detected (NOT DETECT); Astrovirus Not Detected (NOT DETECT); Campylobacter Sp Not Detected (NOT DETECT); Cryptosporidium Not Detected (NOT DETECT); Cyclospora Cayetanensis Not Detected (NOT DETECT); E. Coli O157 Not Detected (NOT DETECT); Entamoeba Histolytica Not Detected (NOT DETECT); Enteroaggregative E. coli-EAEC Not Detected (NOT DETECT); Enteropathogenic E. coli-EPEC Not Detected (NOT DETECT); Enterotoxigenic E. coli-ETEC Not Detected (NOT DETECT); Giardia Lamblia Not Detected (NOT DETECT); Norovirus GI/GII Not Detected (NOT DETECT); Plesiomonas Shigelloides Not Detected (NOT DETECT); Rotavirus A Not Detected (NOT DETECT); Salmonella Sp Not Detected (NOT DETECT); Sapovirus Not Detected (NOT DETECT); Shiga Toxin-prod E. coli-STEC Not Detected (NOT DETECT); Shigella/Enteroin E. coli-EIEC Not Detected (NOT DETECT); Vibrio Cholerae Not Detected (NOT DETECT); Vibrio Sp Not Detected (NOT DETECT); Yersinia Enterocolitica Not Detected (NOT DETECT)
--- NOTE | 2021-12-13 18:12 | NUR ---
SHIFT SUMMARY: PT A&O PLEASANT AND COOPERATIVE. PT RECEVIED MULTIPLE LAB DRAWS AND STOOL CULTURES. PT SEEN BY DR. HERR TO DISCUSS RESULTS OF COLOSCOPY. PT HAD A TEMPERTURE OF 102.7 IN THE BEGINNING OF THE SHIFT. PT MEDICATED FOR THE FEVER AND REASSESSMENT 99.5. PT HAD DISCOMFORT LOWER ABDOMINAL PAIN, PT MEDICATED WITH IV MORPHINE. PT REASSESSED AND PAIN HAD SUBSIDED. PT AMBULATED TO THE CAFE AND BACK INDEPENDANTLY. PT HAS DECREASED APPETITE AND OFFERED ENSURE OR OTHER FOODS AND DECLINED. PT WAS ABLE TO EAT A BANANA AND DRINK GATORADE. PT IN BED WITH CALL LIGHT WITHIN REACH
--- NOTE | 2021-12-13 18:29 | NUR ---
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
[2021-12-14 05:09] LABS: Hematocrit 35.3 % (37.0-53.0); Hemoglobin 11.9 g/dL (13.5-17.5); Mean Corpuscular HGB 27.7 pg (26.0-34.0); Mean Corpuscular HGB Conc 33.7 g/dL (31.5-36.5); Mean Corpuscular Volume 82 fL (80-100); Mean Platelet Volume 9.3 fL (9.1-12.4); Platelet Count 584 K/mm3 (150-400); RDW Coefficient Variation 14.2 % (11.7-14.2); RDW Standard Deviation 42.2 fL (35.1-46.3); White Blood Cell Count 10.89 K/mm3 (4.00-11.30)
[2021-12-14 05:44] LABS: Albumin/Globulin Ratio 0.5 (0.8-1.8); Bilirubin, Total 0.5 mg/dL (0.1-1.0); Bun/Creatinine Ratio 5.3 (12.0-20.0); C-REACTIVE PROTEIN, EXT RANGE 10.4 mg/dL (0.000-0.300); Calcium, Blood 7.5 mg/dL (8.5-10.1); Creatinine, Blood 0.75 mg/dL (0.60-1.20); Potassium, Blood 3.2 mmol/L (3.5-5.5)
--- NOTE | 2021-12-14 05:50 | NUR ---
HUB BORER SUMMARY: A&Ox4. PLEASANT AND COOPERATIVE WITH CARE. VSS; NO FEVER NOTED T/O THE NIGHT, THOUGH DID EXPERIENCE SOME CHILLS IN THE EARLY EVENING. DR. RAMOS TO BEDSIDE; WOULD LIKE TO COORDINATE TIME TO DISCUSS Tx OF NEW CROHN'S Dx WITH PT AND WHEN ABLE. MEDICATED x1 T/O NIGHT FOR PAIN. BLOOD Cx STILL PENDING; NO PRELIM AVAILABLE AT THIS TIME. PER DR RAMOS: PAIN CONTROL W/ PO MEDS, NO FEVER AND EATING W/O N/V/D, MAY CONSIDER DC. WILL REPORT TO ONCOMING RN.
[2021-12-14 08:09] LABS: HBSAG SCREEN Negative (Negative); HCV ANTIBODY <0.1 (0.0-0.9); HEP B CORE AB, TOT Negative (Negative)
[2021-12-14] MEDS ORDERED: DILT120 PO (09:58)
[2021-12-14] MEDS ORDERED: ORTIKOS9 M1 PO (09:58)
[2021-12-14] MEDS ORDERED: ZENPEP DR 15,01 EACH PO (09:59)
--- NOTE | 2021-12-14 17:17 | NUR ---
Discharge Summary A/O, reviewed d/c papers with patient and at bedside. Questions answered. Meds faxed to [facility]. Copy of dc papers given. Will be escorted by staff via w/c with personal belongings.
[2021-12-17 13:08] LABS: QUANTIFERON MITOGEN VALUE 2.66 IU/mL (.); QUANTIFERON NIL VALUE 0.09 IU/mL (.); QUANTIFERON-TB GOLD PLUS Negative (Negative)
== END 2021-12-14 17:48 | disposition home or self-care (01) | DRG 439 ==
LOC: ER 04:59 → ERHOLD 08:22 → MEDS 08:22
PROVIDERS: Emergency Medicine; Family Medicine; Internal Medicine Gastroenterology; ADMIT Internal Medicine
PROC: 0DBN8ZX Excision of Sigmoid Colon, Via Natural or Artificial Opening Endoscopic, Diagnostic (ICD-10-PCS; 2021-12-12)
PROC: 0DBP8ZX Excision of Rectum, Via Natural or Artificial Opening Endoscopic, Diagnostic (ICD-10-PCS; 2021-12-12)
PROC: 0DBB8ZX Excision of Ileum, Via Natural or Artificial Opening Endoscopic, Diagnostic (ICD-10-PCS; 2021-12-12)
PROC: 0DBM8ZX Excision of Descending Colon, Via Natural or Artificial Opening Endoscopic, Diagnostic (ICD-10-PCS; 2021-12-12)
PROC: 0DBH8ZX Excision of Cecum, Via Natural or Artificial Opening Endoscopic, Diagnostic (ICD-10-PCS; 2021-12-12)
PROC: 0DBK8ZX Excision of Ascending Colon, Via Natural or Artificial Opening Endoscopic, Diagnostic (ICD-10-PCS; principal; 2021-12-12 15:30)
PROC: 0DBL8ZX Excision of Transverse Colon, Via Natural or Artificial Opening Endoscopic, Diagnostic (ICD-10-PCS; 2021-12-12 15:30)
DX: K85.90 Acute pancreatitis without necrosis or infection, unspecified (principal); E44.0 Moderate protein-calorie malnutrition; I48.92 Unspecified atrial flutter; K50.00 Crohn's disease of small intestine without complications; K50.80 Crohn's disease of both small and large intestine without complications; F41.8 Other specified anxiety disorders; I10 Essential (primary) hypertension; I48.0 Paroxysmal atrial fibrillation; K21.9 Gastro-esophageal reflux disease without esophagitis; J44.9 Chronic obstructive pulmonary disease, unspecified; E88.09 Other disorders of plasma-protein metabolism, not elsewhere classified; R63.4 Abnormal weight loss; M10.9 Gout, unspecified; G47.33 Obstructive sleep apnea (adult) (pediatric); E87.6 Hypokalemia; Z90.49 Acquired absence of other specified parts of digestive tract; Z98.890 Other specified postprocedural states; Z79.01 Long term (current) use of anticoagulants; Z79.899 Other long term (current) drug therapy; Z88.8 Allergy status to other drugs, medicaments and biological substances; Z88.6 Allergy status to analgesic agent; Z88.5 Allergy status to narcotic agent; Z68.23 Body mass index [BMI] 23.0-23.9, adult
CPT/HCPCS: 0241U; 36415; 74177; 80053; 82306; 82378; 82607; 82728; 82746; 83540; 83550; 83690; 83993; 84443; 85025; 85027; 85651; 86140; 86141; 86317; 86480; 86664; 86665; 86704; 86708; 86735; 86762; 86765; 86787; 86803; 87040; 87340; 87507; 88305; 88342; 94640; 94664; 94760; 96361; 96374-59; 96375; 96376; 99285-25; A9270; J2250; J2270; J2405; J2704; J7030; J7120; Q9967

== ENCOUNTER 2022-02-25 19:37 | Inpatient (IN) | payer BC, MEDICARE ==
[~2022-02-25] VITALS: Ht 193 cm; Wt 91.0 kg
[~2022-02-25 19:37] MED LIST changes: +ATOR10 PO; +BUDESONIDE EC3 M1 PO; +DILTIAZEM 24HR120 M4 PO; +DILTIAZEM 24HR360 M2 PO; +Dilaudid 2 mg Ta2 MG; +FLUTICASONE-SA1 EAC9 INH; +Hair, Skin & N1 EACH PO; +METOPROLOL TART25 MG PO; +PROAIR RESPICL90 MCG IH; +ZENPEP DR 15,01 EACH PO; +[UNRECOGNIZED DRUG - OTHER] PO
[2022-02-25 20:23] LABS: BASOPHILS ABSOLUTE AUTO 0.06 K/mm3 (0.00-0.23); BASOPHILS PERCENT AUTO 0 % (0-2); EOSINOPHILS ABSOLUTE AUTO 0.34 K/mm3 (0.00-0.68); EOSINOPHILS PERCENT AUTO 2 % (0-6); Hematocrit 38.9 % (37.0-53.0); Hemoglobin 13.2 g/dL (13.5-17.5); IMMATURE GRAN PERCENT AUTO 1 % (0-1); LYMPHOCYTES ABSOLUTE AUTO 2.28 K/mm3 (0.84-5.20); LYMPHOCYTES PERCENT AUTO 12 % (21-46); MONOCYTES ABSOLUTE AUTO 1.15 K/mm3 (0.16-1.47); MONOCYTES PERCENT AUTO 6 % (4-13); Mean Corpuscular HGB 30.1 pg (26.0-34.0); Mean Corpuscular HGB Conc 33.9 g/dL (31.5-36.5); Mean Corpuscular Volume 89 fL (80-100); Mean Platelet Volume 8.5 fL (9.1-12.4); NEUTROPHILS ABSOLUTE AUTO 14.54 K/mm3 (1.96-9.15); NEUTROPHILS PERCENT AUTO 79 % (41-73); Platelet Count 785 K/mm3 (150-400); RDW Coefficient Variation 15.6 % (11.7-14.2); RDW Standard Deviation 51.3 fL (35.1-46.3); Red Blood Cell Count 4.39 M/mm3 (4.30-5.90); White Blood Cell Count 18.47 K/mm3 (4.00-11.30)
[2022-02-25 20:33] LABS: Source, Urine Clean Catch
[2022-02-25 20:45] LABS: Appearance, Urine Clear (Clear); Bilirubin, Urine Neg (Neg); Blood, Urine Neg (Neg); Color, Urine Yellow (P-Yellow); Glucose Qualitative, Urine Neg (Neg); Ketones, Urine Neg (Neg); Leukocyte Esterase, Urine Neg (Neg); Nitrite, Urine Neg (Neg); Protein, Urine Neg (Neg); Urobilinogen, Urine NORM (Normal)
[2022-02-25 20:46] LABS: Albumin, Blood 2.9 g/dL (3.4-5.0); Albumin/Globulin Ratio 0.7 (0.8-1.8); Bilirubin, Total 0.4 mg/dL (0.1-1.0); Bun/Creatinine Ratio 23.6 (12.0-20.0); Calcium, Blood 8.5 mg/dL (8.5-10.1); Creatinine, Blood 0.76 mg/dL (0.60-1.20); Globulin, Blood 3.9 g/dL (2.2-4.0); Potassium, Blood 3.3 mmol/L (3.5-5.5); Total Protein, Blood 6.8 g/dL (6.4-8.2)
[2022-02-25] MEDS ORDERED: IMURAN50 MG PO (21:56)
--- NOTE | 2022-02-26 03:12 | NUR ---
new admit from ED. pt dx with pancreatitis, has no prn pain med. contacted dr. lynn. pt c/o abd pain 10/17. new order received for prn iv fentanyl 25mcg, q4h.
[2022-02-26 04:52] LABS: Albumin, Blood 2.5 g/dL (3.4-5.0); Albumin/Globulin Ratio 0.8 (0.8-1.8); Bilirubin, Total 0.8 mg/dL (0.1-1.0); Bun/Creatinine Ratio 19.9 (12.0-20.0); Calcium, Blood 8.1 mg/dL (8.5-10.1); Creatinine, Blood 0.65 mg/dL (0.60-1.20); Globulin, Blood 3.2 g/dL (2.2-4.0); Potassium, Blood 4.2 mmol/L (3.5-5.5); Total Protein, Blood 5.7 g/dL (6.4-8.2)
--- NOTE | 2022-02-26 05:15 | NUR ---
SHIFT SUMMARY A&0 X4. VSS. PAIN MANAGED WITH PRN IV FENTANYL Q4H. INDEPENDENT IN ROOM. PLEASANT AND COOPERATIVE WITH CARE. WILL CONTINUE TO MONITOR AND FOLLOW PLAN OF CARE.
--- NOTE | 2022-02-26 16:58 | NUR ---
SHIFT SUMMARY PT INDEPENDENT, A&OX4, AND CALLS APPROPRIATLY. COMPLAINED OF 7-10/10 PAIN TO EPIGASTRIC/ABDOMINAL REGION. CURRENTLY ON REGIMEN OF 1MG HYDROMORPHONE Q2HRS IV. STATES THE PAIN STILL CUTS THROUGH AND THAT HE'LL "JUST HAVE TO DEAL WITH IT." LBM YESTERDAY, BUT REPORTS THAT HE FELT LIKE HE HAD TO HAVE A BM TODAY BUT WASN'T ABLE TO. MAY NEED BOWEL PROTOCOL ORDERED FOR TOMORROW. CONTINUES TO BE ON A CLEAR LIQUID DIET BUT DID NOT CONSUME MUCH TODAY. CONTINUOUS NS AT 15OMLS/HR STARTED AT 1420. PT VOIDING APPROPRIATELY. NO ACUTE EVENTS OCCURED TODAY. PT IS CURRENTLY VISITING WITH HIS . CALL LIGHT WITHIN REACH.
[2022-02-27 05:03] LABS: Hematocrit 32.1 % (37.0-53.0); Hemoglobin 10.8 g/dL (13.5-17.5); Mean Corpuscular HGB Conc 33.6 g/dL (31.5-36.5); Mean Corpuscular Volume 89 fL (80-100); Mean Platelet Volume 8.5 fL (9.1-12.4); Platelet Count 505 K/mm3 (150-400); RDW Standard Deviation 49.1 fL (35.1-46.3); White Blood Cell Count 8.99 K/mm3 (4.00-11.30)
--- NOTE | 2022-02-27 05:13 | NUR ---
SPORTS BROADCASTER SUMMARY: A&Ox4. PLEASANT AND COOPERATIVE WITH CARE. CALLS APPROPRIATELY AND IS ABLE TO COMMUNICATE NEEDS EFFECTIVELY. NO DEVATION FROM ELIMINATION PATTERN REPORTED. CONTINUES WITH IV DILAUDID 1MG Q2H TO MAINTAIN ADEQUATE PAIN CONTROL. IS HOPING TO CONTROL WITH PO MEDS AND DC HOME TODAY OR TOMORROW. REQUESTED TO DC IV FLUIDS LATE LAST NIGHT IN AN EFFORT TO GET SOME REST AND WERE RESTARTED THIS MORNING. WILL REPORT TO ONCOMING RN.
[2022-02-27 05:54] LABS: Albumin, Blood 2.3 g/dL (3.4-5.0); Albumin/Globulin Ratio 0.7 (0.8-1.8); Bilirubin, Total 0.8 mg/dL (0.1-1.0); Bun/Creatinine Ratio 12.7 (12.0-20.0); Calcium, Blood 8.6 mg/dL (8.5-10.1); Creatinine, Blood 0.63 mg/dL (0.60-1.20); Globulin, Blood 3.2 g/dL (2.2-4.0); Potassium, Blood 3.7 mmol/L (3.5-5.5); Total Protein, Blood 5.5 g/dL (6.4-8.2)
[2022-02-27] MEDS ORDERED: ALBU2.5V5 NEB (16:27)
[2022-02-27] MEDS ORDERED: Prinivil10 MG PO (16:39)
--- NOTE | 2022-02-27 17:35 | NUR ---
SHIFT SUMMARY PT A&OX4 AND IN PLEASENT MOOD T/O SHIFT. DIET ADVANCE TOLERATING, TOLERATING FULL LIQUID DIET-WAITING ON SOFT TRAY @ THIS TIME. CALL LIGHT W/IN REACH. PAIN MEDICATED PER EMAR. VSS.
--- NOTE | 2022-02-27 19:48 | NUR ---
AWAKE, VERBAL RESPONSE APPROPRIATE TO QUESTIONS ASKED. REQUESTED PAIN MED WITH [facility] MED[facility]. CALL LIGHT IN REACH
--- NOTE | 2022-02-28 03:34 | NUR ---
SYSTEMS ADMINISTRATION ANALYST SUMMARY HEART RATE RAPID, OTHERWISE VSS. VOICED ABD DISCOMFORT DUE TO "OVEREATING", MEDICATED FOR PAIN - SEE MAR FOR DETAILS. UP AD LINDY. VOICED NO BM FOR 3 DAYS, BUT ALSO THAT HE HAD NOT EATEN FOR THE PAST FEW DAYS OTHER THAN TODAY. VOICED HE WOULD NOTIFY STAFF IF NO BM TODAY, SO STAFF COULD EVALUATE IF HE NEEDED BOWEL MEDS. HAS BEEN RESTING QUIETLY WITH OCCASIONAL INTERRUPTIONS. CALL LIGHT IN REACH. NO C/O VOICED AT THIS TIME. CALL LIGHT IN REACH. WILL CONTINUE TO MONITOR
[2022-02-28] MEDS ORDERED: SENN187 PO (13:15)
[2022-02-28] MEDS ORDERED: HYDMOR2 PO (13:16)
[2022-02-28] MEDS ORDERED: PROM25 PO (13:17)
--- NOTE | 2022-02-28 14:02 | NUR ---
DISCHARGE PT A&OX4 AT TIME OF DC. HARD SCRIPT IN HAND, 2 MEDS FAXED INTO [facility]. TO PROVIDE TRANSPORT. DECLINED NEED FOR ESCORT OUT. TOLERATING PO INTAKE
== END 2022-02-28 13:40 | disposition home or self-care (01) | DRG 439 ==
LOC: ER 19:37 → MEDS 19:38
PROVIDERS: Emergency Medicine; Family Medicine; Internal Medicine; ADMIT Internal Medicine
DX: K85.10 Biliary acute pancreatitis without necrosis or infection (principal); K50.90 Crohn's disease, unspecified, without complications; I10 Essential (primary) hypertension; J44.9 Chronic obstructive pulmonary disease, unspecified; I48.0 Paroxysmal atrial fibrillation; F32.A Depression, unspecified; F41.9 Anxiety disorder, unspecified; F10.10 Alcohol abuse, uncomplicated; E87.6 Hypokalemia; K86.1 Other chronic pancreatitis; F12.10 Cannabis abuse, uncomplicated; K21.9 Gastro-esophageal reflux disease without esophagitis; G47.33 Obstructive sleep apnea (adult) (pediatric); G90.2 Horner's syndrome; Z90.49 Acquired absence of other specified parts of digestive tract; Z98.890 Other specified postprocedural states; Z79.01 Long term (current) use of anticoagulants; Z88.5 Allergy status to narcotic agent; Z79.899 Other long term (current) drug therapy; Z79.51 Long term (current) use of inhaled steroids; Z79.02 Long term (current) use of antithrombotics/antiplatelets; Z79.52 Long term (current) use of systemic steroids; Z87.891 Personal history of nicotine dependence; Z91.51 Personal history of suicidal behavior
CPT/HCPCS: 36415; 74177; 80053; 81003; 83690; 83735; 85025; 85027; 94640; 94664; 94760; 96361; 96365-59; 96375; 96376; 99285-25; A9270; G0378; J1170; J1885; J2405; J2550; J3010; J3480; J7030; J7050; J7120; J7500; Q9967

== ENCOUNTER 2022-04-18 02:05 | Day surgery (SDC) | payer BC, MEDICARE ==
[~2022-04-18 02:05] MED LIST changes: +ALBU2.5V5 NEB; +IMURAN50 MG PO; +PROM25 PO; +SENN187 PO
== END 2022-04-18 10:58 | disposition home or self-care (01) ==
LOC: ATC 02:05
DX: K50.90 Crohn's disease, unspecified, without complications (principal)
CPT/HCPCS: 96375; 96413; 96415; A9270; J1720; J7050; Q5103

== ENCOUNTER 2022-05-02 01:28 | Day surgery (SDC) | payer BC, MEDICARE ==
[~2022-05-02] VITALS: Wt 92.7 kg
== END 2022-05-02 11:19 | disposition home or self-care (01) ==
LOC: ATC 01:28
DX: K50.90 Crohn's disease, unspecified, without complications (principal)
CPT/HCPCS: 96375; 96413; 96415; A9270; J1720; J7050; Q5103

== ENCOUNTER 2022-06-13 02:43 | Day surgery (SDC) | payer BC, MEDICARE | END 2022-06-13 10:59 | disposition home or self-care (01) | LOC: ATC 02:43 | DX: K50.90 Crohn's disease, unspecified, without complications (principal); K21.9 Gastro-esophageal reflux disease without esophagitis; I48.0 Paroxysmal atrial fibrillation; J44.9 Chronic obstructive pulmonary disease, unspecified; G47.33 Obstructive sleep apnea (adult) (pediatric) | CPT/HCPCS: 96413; 96415; J7050; Q5103 ==

== ENCOUNTER → 2022-08-07 | Outpatient (CLI) | payer BC, MEDICARE | END | disposition home or self-care (01) | LOC: LAB SHORT 10:04 → LAB 10:04 | DX: K50.00 Crohn's disease of small intestine without complications (principal); K50.10 Crohn's disease of large intestine without complications | CPT/HCPCS: 83993 ==

== ENCOUNTER 2022-10-03 04:02 | Day surgery (SDC) | payer BC, MEDICARE ==
[2022-10-03 07:40] VITALS: BP 147/93
== END 2022-10-03 11:11 | disposition home or self-care (01) ==
LOC: ATC 04:02
DX: K50.00 Crohn's disease of small intestine without complications (principal); Z87.891 Personal history of nicotine dependence; Z88.5 Allergy status to narcotic agent
CPT/HCPCS: 96413; 96415; J7050; Q5103

== ENCOUNTER 2023-01-22 06:02 | Day surgery (SDC) | payer BC, MEDICARE ==
[2023-01-22 09:12] VITALS: BP 142/89
== END 2023-01-22 11:45 | disposition home or self-care (01) ==
LOC: ATC 06:02
DX: K50.90 Crohn's disease, unspecified, without complications (principal); J44.9 Chronic obstructive pulmonary disease, unspecified; I48.91 Unspecified atrial fibrillation; E55.9 Vitamin D deficiency, unspecified
CPT/HCPCS: 96413; 96415; J7050; Q5103

== ENCOUNTER 2023-03-19 01:06 | Day surgery (SDC) | payer BC, MEDICARE ==
[2023-03-19 08:52] VITALS: BP 136/78
== END 2023-03-19 11:27 | disposition home or self-care (01) ==
LOC: ATC 01:06
DX: K50.00 Crohn's disease of small intestine without complications (principal)
CPT/HCPCS: 96413; 96415; J7050; Q5103

== ENCOUNTER 2023-04-30 06:33 | Day surgery (SDC) | payer BC, MEDICARE ==
[~2023-04-30] VITALS: Ht 193 cm; Wt 100.9 kg
[~2023-04-30 06:33] MED LIST changes: +ACET500 PO; +CREON DR 12,001 EACH PO; -DILTIAZEM 24HR120 M4 PO; +DILTIAZEM 24HR360 MG PO
[2023-04-30] MEDS ORDERED: Lactated Ringer's 1,000 ML IV ONE ×2 (07:34→07:48)
[2023-04-30] MEDS ORDERED: propofoL 50 ML IV ONE (07:34)
[2023-04-30 08:57] VITALS: BP 112/78
== END 2023-04-30 09:07 | disposition home or self-care (01) ==
LOC: ORSCSDS 06:33
PROVIDERS: Internal Medicine Gastroenterology
PROC: 0DBM8ZX Excision of Descending Colon, Via Natural or Artificial Opening Endoscopic, Diagnostic (ICD-10-PCS; principal; 2023-04-30 08:00)
PROC: 0DBB8ZX Excision of Ileum, Via Natural or Artificial Opening Endoscopic, Diagnostic (ICD-10-PCS; principal; 2023-04-30 08:00)
PROC: 0DBP8ZX Excision of Rectum, Via Natural or Artificial Opening Endoscopic, Diagnostic (ICD-10-PCS; principal; 2023-04-30 08:00)
PROC: 0DBN8ZX Excision of Sigmoid Colon, Via Natural or Artificial Opening Endoscopic, Diagnostic (ICD-10-PCS; principal; 2023-04-30 08:00)
PROC: 0DBK8ZX Excision of Ascending Colon, Via Natural or Artificial Opening Endoscopic, Diagnostic (ICD-10-PCS; principal; 2023-04-30 08:00)
PROC: 0DBL8ZX Excision of Transverse Colon, Via Natural or Artificial Opening Endoscopic, Diagnostic (ICD-10-PCS; principal; 2023-04-30 08:00)
PROC: 0DBH8ZX Excision of Cecum, Via Natural or Artificial Opening Endoscopic, Diagnostic (ICD-10-PCS; principal; 2023-04-30 08:00)
DX: K50.80 Crohn's disease of both small and large intestine without complications (principal); J44.9 Chronic obstructive pulmonary disease, unspecified; I48.91 Unspecified atrial fibrillation; Z87.891 Personal history of nicotine dependence; Z79.01 Long term (current) use of anticoagulants; Z79.899 Other long term (current) drug therapy
CPT/HCPCS: 82947; 88305; J2704; J7120

== ENCOUNTER 2023-07-16 04:34 | Day surgery (SDC) | payer BC, MEDICARE ==
[~2023-07-16 04:34] MED LIST changes: +INFLECTRA100 MG IV
[2023-07-16] MEDS ORDERED: NS IV SCH (06:00)
[2023-07-16] MEDS ORDERED: INFLIXIMAB DYYB IV SCH (06:00)
[2023-07-16] MEDS ORDERED: DiphenhydrAMINE HCL 25 MG Cap PO PRN (07:20)
[2023-07-16] MEDS ORDERED: Acetaminophen 325 MG TABLET PO PRN (07:20)
[2023-07-16] MEDS ORDERED: Hydrocortisone Sod Succinate 100 MG Vial IV SCH (07:20)
[2023-07-16 08:53] VITALS: BP 120/84
== END 2023-07-16 11:23 | disposition home or self-care (01) ==
LOC: ATC 04:34
DX: K50.80 Crohn's disease of both small and large intestine without complications (principal); J44.9 Chronic obstructive pulmonary disease, unspecified; F17.220 Nicotine dependence, chewing tobacco, uncomplicated; Z87.891 Personal history of nicotine dependence; Z88.5 Allergy status to narcotic agent
CPT/HCPCS: 96413; 96415; J7050; Q5103

== ENCOUNTER 2023-09-10 03:28 | Day surgery (SDC) | payer BC, MEDICARE ==
[2023-09-10] MEDS ORDERED: NS IV SCH (06:00)
[2023-09-10] MEDS ORDERED: INFLIXIMAB DYYB IV SCH (06:00)
[2023-09-10 08:47] VITALS: BP 132/73
== END 2023-09-10 11:30 | disposition home or self-care (01) ==
LOC: ATC 03:28
DX: K50.00 Crohn's disease of small intestine without complications (principal); I10 Essential (primary) hypertension; G47.30 Sleep apnea, unspecified; I48.0 Paroxysmal atrial fibrillation; K21.9 Gastro-esophageal reflux disease without esophagitis; Z87.891 Personal history of nicotine dependence; Z88.5 Allergy status to narcotic agent; Z79.01 Long term (current) use of anticoagulants; Z79.899 Other long term (current) drug therapy
CPT/HCPCS: 96413; 96415; J7050; Q5103

== ENCOUNTER 2023-11-05 00:39 | Day surgery (SDC) | payer BC, MEDICARE ==
[2023-11-05] MEDS ORDERED: INFLIXIMAB DYYB IV SCH (06:00)
[2023-11-05] MEDS ORDERED: NS IV SCH (06:00)
[2023-11-05 07:40] VITALS: BP 143/87
== END 2023-11-05 10:30 | disposition home or self-care (01) ==
LOC: ATC 00:39
DX: K50.90 Crohn's disease, unspecified, without complications (principal); K21.9 Gastro-esophageal reflux disease without esophagitis; I10 Essential (primary) hypertension; I48.0 Paroxysmal atrial fibrillation; E66.9 Obesity, unspecified; F17.220 Nicotine dependence, chewing tobacco, uncomplicated; Z79.01 Long term (current) use of anticoagulants; Z79.899 Other long term (current) drug therapy; Z88.5 Allergy status to narcotic agent; Z68.24 Body mass index [BMI] 24.0-24.9, adult
CPT/HCPCS: 96413; 96415; J7050; Q5103

== ENCOUNTER 2023-12-31 00:53 | Day surgery (SDC) | payer BC, MEDICARE ==
[~2023-12-31] VITALS: Wt 96.4 kg
[2023-12-31] MEDS ORDERED: INFLIXIMAB DYYB IV SCH (06:00)
[2023-12-31] MEDS ORDERED: NS IV SCH (06:00)
[2023-12-31 07:34] VITALS: BP 127/69
== END 2023-12-31 10:33 | disposition home or self-care (01) ==
LOC: ATC 00:53
DX: K50.10 Crohn's disease of large intestine without complications (principal); I10 Essential (primary) hypertension; I48.0 Paroxysmal atrial fibrillation; K21.9 Gastro-esophageal reflux disease without esophagitis; F17.220 Nicotine dependence, chewing tobacco, uncomplicated; Z79.899 Other long term (current) drug therapy; Z88.5 Allergy status to narcotic agent
CPT/HCPCS: 96413; 96415; J7050; Q5103

== ENCOUNTER 2024-02-25 05:00 | Day surgery (SDC) | payer BC, MEDICARE ==
[~2024-02-25] VITALS: Wt 98.2 kg
[2024-02-25] MEDS ORDERED: NS IV SCH (06:00)
[2024-02-25] MEDS ORDERED: INFLIXIMAB DYYB IV SCH (06:00)
[2024-02-25 07:38] VITALS: BP 130/85
== END 2024-02-25 10:32 | disposition home or self-care (01) ==
LOC: ATC 05:00
DX: K50.00 Crohn's disease of small intestine without complications (principal); G47.30 Sleep apnea, unspecified; I48.0 Paroxysmal atrial fibrillation; I10 Essential (primary) hypertension; K21.9 Gastro-esophageal reflux disease without esophagitis; Z87.891 Personal history of nicotine dependence; Z88.5 Allergy status to narcotic agent; Z88.8 Allergy status to other drugs, medicaments and biological substances; Z79.01 Long term (current) use of anticoagulants; Z79.899 Other long term (current) drug therapy
CPT/HCPCS: 96413; 96415; J7050; Q5103

== ENCOUNTER 2024-04-21 02:23 | Day surgery (SDC) | payer BC, MEDICARE ==
[2024-04-21] MEDS ORDERED: NS IV SCH (06:00)
[2024-04-21] MEDS ORDERED: INFLIXIMAB DYYB IV SCH (06:00)
[2024-04-21 08:05] VITALS: BP 150/91
== END 2024-04-21 11:05 | disposition home or self-care (01) ==
LOC: ATC 02:23
DX: K50.80 Crohn's disease of both small and large intestine without complications (principal); K21.9 Gastro-esophageal reflux disease without esophagitis; I10 Essential (primary) hypertension; I48.0 Paroxysmal atrial fibrillation; F17.220 Nicotine dependence, chewing tobacco, uncomplicated; Z79.899 Other long term (current) drug therapy; Z88.5 Allergy status to narcotic agent
CPT/HCPCS: J7050; Q5103

== ENCOUNTER 2024-06-16 03:15 | Day surgery (SDC) | payer BC, MEDICARE ==
[~2024-06-16] VITALS: Wt 94.2 kg
[2024-06-16] MEDS ORDERED: NS IV SCH (06:00)
[2024-06-16] MEDS ORDERED: INFLIXIMAB DYYB IV SCH (06:00)
[2024-06-16 08:43] VITALS: BP 120/81
== END 2024-06-16 11:26 | disposition home or self-care (01) ==
LOC: ATC 03:15
DX: K50.80 Crohn's disease of both small and large intestine without complications (principal); I10 Essential (primary) hypertension; I48.0 Paroxysmal atrial fibrillation; K21.9 Gastro-esophageal reflux disease without esophagitis; F17.220 Nicotine dependence, chewing tobacco, uncomplicated; Z79.01 Long term (current) use of anticoagulants; Z79.52 Long term (current) use of systemic steroids; Z79.899 Other long term (current) drug therapy; Z88.5 Allergy status to narcotic agent
CPT/HCPCS: 96413; 96415; J7050; Q5103

== ENCOUNTER 2024-08-11 01:04 | Day surgery (SDC) | payer BC, MEDICARE ==
[2024-08-11] MEDS ORDERED: NS IV SCH (07:00)
[2024-08-11] MEDS ORDERED: INFLIXIMAB DYYB IV SCH (07:00)
[2024-08-11 13:57] VITALS: BP 121/84
--- NOTE | 2024-08-11 14:15 | NUR ---
PT EXPRESSED TO RN THAT HE HAS BEEN HAVING MULTIPLE REACTIONS TO THIS MEDICATION AND THAT HE IS NOT HAPPY HE IS STILL ON THIS. RN ASKED IF HE HAS TOLD AND CONSULTED HIS DOCTOR ABOUT THIS. HE STATED "YES AND HE DOESNT REALLY THINK I NEED TO CHANGE IT, BUT WILL ORDER SOME TEST TO SEE WHICH ONE TO CHANGE IT TO" RN ADVISED PT OF HIS RIGHT TO REFUSAL IF HE IS UNCOMFORTABLE TAKING THIS MEDICATION. PT STATES HE STILL WANTS TO DO THIS TODAY AND THAT HOPEFULLY HE WILL BE ON A DIFFERENT MEDICAION NEXT TIME.
--- NOTE | 2024-08-11 16:06 | NUR ---
PT CHOSE TO ONLY TAKE 1/2 OF INFUSION TO SEE IF SYMPTOMS ARE LESS.
== END 2024-08-11 15:30 | disposition home or self-care (01) ==
LOC: ATC 01:04
DX: K50.80 Crohn's disease of both small and large intestine without complications (principal); K21.9 Gastro-esophageal reflux disease without esophagitis; G47.33 Obstructive sleep apnea (adult) (pediatric); I48.0 Paroxysmal atrial fibrillation; I10 Essential (primary) hypertension; F17.220 Nicotine dependence, chewing tobacco, uncomplicated; J44.9 Chronic obstructive pulmonary disease, unspecified; Z79.01 Long term (current) use of anticoagulants; Z79.899 Other long term (current) drug therapy; Z88.5 Allergy status to narcotic agent
CPT/HCPCS: 96413; J7050; Q5103